=== PATIENT | male | born 1985 | race Caucasian/White ===

== ENCOUNTER 2019-04-24 22:03 | Emergency (ER) | payer BC ==
[~2019-04-24] VITALS: Ht 175.3 cm; Wt 131.5 kg
[2019-04-24 22:14] VITALS: Ht 175.3 cm; Wt 131.5 kg
[2019-04-24] MEDS ORDERED: BUPROPION XL150 MG PO (22:15)
[2019-04-24 23:03] LABS: BASOPHILS 0.2 % (0-2); EOSINOPHILS 0.7 % (0-7); HEMATOCRIT 42.3 % (42.0-54.0); HEMOGLOBIN 15.2 g/dL (13.5-17.5); IMMATURE GRANULOCYTES 0.1 % (0-5); MCH 31.7 pg (26.0-34.0); MCHC 35.9 g/dL (31.0-37.0); MCV 88.3 fL (80.0-100.0); MEAN PLATELET VOLUME 9.5 fL (7.4-10.4); MONOCYTES 6.1 % (2-11); NEUTROPHILS 74.9 % (40-80); PLATELET COUNT 251 10x3/uL (130-400); RBC 4.79 10x6/uL (4.20-6.10); RDW 13.1 % (11.5-14.5); WBC 10.3 10x3/uL (4.8-10.8)
[2019-04-24 23:27] LABS: ALBUMIN 4.1 g/dL (3.4-5.0); ANION GAP 16.7 mmol/L (8-16); BILIRUBIN - TOTAL 1.12 mg/dL (0.2-1.3); CARBON DIOXIDE 23.7 mmol/L (21.0-32.0); CREATININE - SERUM 1.2 mg/dL (0.6-1.3); POTASSIUM - SERUM 3.4 mmol/L (3.5-5.1); PROTEIN - SERUM 8.1 g/dL (6.4-8.2)
[2019-04-25] MEDS ORDERED: ULTRAM50 MG PO (01:18)
[2019-04-25] MEDS ORDERED: KEFLEX500 MG PO (01:18)
[2019-04-25] MEDS ORDERED: ERYTHROMYCIN OPT1 GM EACH EYE (01:27)
[2019-04-25] MEDS ORDERED: SILVADENE20 GM TP (01:27)
[2019-04-25] MEDS ORDERED: HYDROCODON-ACE1 EAC7 PO (01:28)
[2019-04-25 02:44] VITALS: BP 130/88
== END 2019-04-25 02:10 | disposition home or self-care (01) ==
LOC: D.ER 22:03
PROVIDERS: Family Medicine
DX: T20.00XA Burn of unspecified degree of head, face, and neck, unspecified site, initial encounter (principal); X08.8XXA Exposure to other specified smoke, fire and flames, initial encounter; Y93.89 Activity, other specified; Y92.89 Other specified places as the place of occurrence of the external cause; T26.42XA Burn of left eye and adnexa, part unspecified, initial encounter; H16.132 Photokeratitis, left eye